=== PATIENT | male | born 1975 | race Caucasian/White ===

== ENCOUNTER → 2016-10-21 | Outpatient (CLI) | payer BC ==
[2016-10-21 06:49] LABS: CREATININE 1.3 mg/dL (0.70-1.50)
--- NOTE | 2016-10-21 09:03 | DI ---
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 Previous Exam: None at this facility. PA and lateral views of the orbits are submitted. There is no metallic foreign body in the confines o f either orbit. Reading: Normal screening views of the orbits.
--- NOTE | 2016-10-21 20:25 | DI ---
MRI LEFT FOOT SCAN WITH AND WITHOUT IV CONTRAST, 10/21/2016 6:46 AM: Clinical History: Lytic lesion of the distal head of the first metatarsal bone on plain films. Previous Exam: None at this facility. Technique: Axial, coronal, and sagittal precontrast T1-weighted and T2-weighted and and fat saturate d STIR. The initial protocol was to perform postcontrast T1-weighted fat saturated sagittal, axial an d coronal scans. Because of technical difficulties with the fat saturation sequence, only postcontras t T1-weighted nonfat saturated sagittal, axial and coronal scans were obtained. There is no soft tissue edema in the region of the first metatarsophalangeal joint or other regions o f the foot. There is a large joint effusion. There is no edema in the metatarsal bones in particularl y the first metatarsal bone. There is a defect in the bone, but the cortex is intact. Immediately ephraim p to the cortex on the medial surface is a small 2-3 mm cyst. There is no soft tissue swelling superf icial to the medial aspect of the first metatarsophalangeal joint. Following contrast, no enhancement of these tissues is identified. The remainder of the forefoot examination is normal. Readin. There is invagination of the cortex on the medial surface of the distal head of the first metatar sharath bone, but no cortical disruption is identified. There is no marrow edema or edema of the surround ing tissues of the first metatarsal phalangeal joints. A large joint effusion is present. Following c ontrast, no enhancing lesion is identified. The changes in the distal head of the first metatarsal varghese ne may be secondary to a previous trauma. There is no evidence of osteomyelitis or of a tumor. 2. The remainder of the forefoot exam is normal.
== END ==
LOC: MRI 06:27
PROVIDERS: ATTEND Podiatrist Foot & Ankle Surgery
DX: D48.7 Neoplasm of uncertain behavior of other specified sites (principal); M86.172 Other acute osteomyelitis, left ankle and foot; M25.475 Effusion, left foot; M79.672 Pain in left foot; Z57.8 Occupational exposure to other risk factors
CPT/HCPCS: 36415; 70030; 73720; 82565; 84520; A9579

== ENCOUNTER → 2016-10-22 | Outpatient (CLI) | payer BC ==
[2016-10-23 09:28] LABS: HEMATOCRIT 45.9 % (42.0-52.0); HEMOGLOBIN 15.7 g/dL (14.0-18.0); MEAN CORPUSCULAR HEMOGLOBIN 30.1 PG (27-31); MEAN CORPUSCULAR HGB CONC 34.2 g/dL (33-37); MEAN PLATELET VOLUME 10.6 FL (7.4-12.2); RDW COEFFICIENT OF VARIATION 12.9 % (11.5-14.5); RED BLOOD COUNT 5.22 10^6/uL (4.70-6.10); WHITE BLOOD COUNT 8.06 10^3/uL (4.8-10.8)
[2016-10-23 09:31] LABS: PLATELET MORPHOLOGY COMMENT NORMAL MORPHOLOGY (NORM)
[2016-10-23 09:37] LABS: BAND NEUTROPHILS % 0.4 % (0-10); LYMPHOCYTES % (MANUAL) 30.1 % (10-50); NEUTROPHILS % (MANUAL) 53.4 % (50-80)
[2016-10-23 09:38] LABS: BASOPHILS % (MANUAL) 0.4 % (0-1); EOSINOPHILS % (MANUAL) 1.6 % (0-8); METAMYELOCYTES % 0 %; MONOCYTES % (MANUAL) 14.1 % (0-12); MYELOCYTES % 0 %; PROMYELOCYTES % 0 %
[2016-10-23 09:39] LABS: ERYTHROCYTE SEDIMENTATION RATE 2 MM/HR (0-15)
== END ==
LOC: LAB 09:13
PROVIDERS: ATTEND Podiatrist Foot & Ankle Surgery
DX: D48.7 Neoplasm of uncertain behavior of other specified sites (principal)
CPT/HCPCS: 36415; 85007; 85652; 86140